=== PATIENT | male | born 1960 | race Caucasian/White ===

== ENCOUNTER 2022-05-16 22:19 | Emergency (ER) | payer OTHER ==
[2022-05-16 22:30] VITALS: BP 168/67
[2022-05-16] MEDS ORDERED: lidocaine 1% 20 ML MDV SUBQ ONE (22:54)
--- NOTE | 2022-05-16 23:42 | ED Physician Documentation ---
PD HPI UPPER EXT INJURY - Stated complaint Stated Complaint: R FINGER LAC - Chief complaint Chief Complaint: Laceration - History obtained from History obtained from: Patient - History of Present Illness Location: Right, Finger (Index) Type of injury: Laceration Where injury occurred: Home Timing - onset: How many hours ago (1) Contributing factors: No: Anticoagulated - Additonal information Additional information: Patient is a 62-year-old male presenting for evaluation of laceration to his right index finger that occurred while he was washing dishes. Patient excellently grabbed a knife which cut him. His tetanus is up-to-date. He does not use blood thinners. Bleeding is controlled with pressure. Review of Systems Nose: denies: Congestion Cardiac: denies: Chest pain / pressure Respiratory: denies: Dyspnea GI: denies: Abdominal Pain Skin: reports: Laceration (s) Musculoskeletal: denies: Back pain Neurologic: denies: Head injury PD PAST MEDICAL HISTORY - Past Medical History Cardiovascular: None Respiratory: None Endocrine/Autoimmune: None GI: None : None Psych: None Musculoskeletal: None Derm: None - Past Surgical History Ortho: Arthroscopic surgery, Other - Allergies Allergies/Adverse Reactions: Allergies Allergy/AdvReac Type Severity Reaction Status Date / Time No Known Drug Allergies Allergy Verified 05/16/22 22:32 PD ED PE NORMAL - General General: Alert and oriented X 3, No acute distress, Well developed/nourished - HEENT HEENT: Atraumatic, Moist mucous membranes - Respiratory Respiratory: No respiratory distress - Derm Derm: Warm and dry - Extremities Extremities: No tenderness to palpate, Normal ROM s pain, Other (1 cm laceration to right index finger at distal Portion, full range of motion at all joints, brisk cap refill, no bony tenderness, No pulsatile bleeding) PD ED PE EXPANDED - Extremities RAND UE/Hands Visual: 1 - laceration Results - Vitals Vitals: Vital Signs - 24 hr 05/16/22 22:27 Temperature 36.5 C Heart Rate 77 Respiratory 18 Rate Blood Pressure 168/67 H O2 Saturation 100 Oxygen O2 Source Room air Procedures - Laceration (location) Right index Wound type: Linear, Clean Neurovascular status: Sensory intact, Motor intact, Vascular intact Tendon involvement: Tendon intact Anesthesia: Lidocaine 1% Wound preparation: Hibiclens, Irrigated copiously NS Skin layer closure: Interrupted, Size #-0 - enter number (4), Sutures - enter # (3) Other: Patient tolerated well, No complications, Neurovascular intact, Dressing applied, Tetanus UTD PD MEDICAL DECISION MAKING - ED course ED course: Patient with laceration to right index finger. No signs of tendon or vascular injury. Full range of motion at all joints. Bleeding is controlled with pressure. Wound was cleaned and sutured. Patient is aware of wound care in structions as well as need for suture removal. He tolerated procedure well. No injuries noted elsewhere. Tetanus is up-to-date. Departure - Departure Disposition: 01 Home, Self Care Clinical Impression: Laceration of right index finger w/o foreign body w/o damage to nail Qualifiers: Encounter type: initial encounter Qualified Code(s): S61.210A - Laceration without foreign body of right index finger without damage to nail, initial encounter Condition: Stable Instructions: ED Laceration Hand Comments: You were evaluated for a laceration to your right index finger. The wound was cleaned and closed with 3 stitches. The stitches will need to be removed in approximately 1 week. He can return to the emergency department, your primary care doctor's office or to a walk-in clinic to have the stitches removed. Please keep the wound clean and dry. If you notice any signs concerning for infection such as redness, swelling, increased pain, abnormal drainage or you have any concerns please return to the emergency department. Discharge Date/Time: 05/16/22 23:50
== END 2022-05-16 23:50 | disposition home or self-care (01) ==
LOC: ED 22:19
DX: S61.210A Laceration without foreign body of right index finger without damage to nail, initial encounter (principal); W26.0XXA Contact with knife, initial encounter; Y93.G1 Activity, food preparation and clean up; Y92.009 Unspecified place in unspecified non-institutional (private) residence as the place of occurrence of the external cause
CPT/HCPCS: 12001; 99281